=== PATIENT | female | born 1940 | race Caucasian/White ===

== ENCOUNTER → 2017-04-19 | Outpatient (CLI) | payer OTHER ==
[~2017-04-19] MED LIST: ADVIN10/60 INH; AMLO-110 PO; ASPI81TA28 PO; MULT-506 PO; OPTIRAY 320 IV PRN; SERT-234 PO; SIMV20TA5 PO; VNTHFA/IN INH
--- NOTE | 2017-04-19 14:01 | DIAGNOSTIC IMAGING REPORT ---
CT SCAN OF THE ABDOMEN AND PELVIS WITH IV CONTRAST CLINICAL HISTORY: Generalized abdominal pain. Reported history of colonic ulcer. COMPARISON STUDY: No priors. TECHNIQUE: Following the IV administration of 92 cc of Optiray 320, CT scan of the abdomen and pelvis is performed from the lung bases to the proximal femora. Images are reviewed in the axial, sagittal, and coronal planes. IV contrast was administered without complication. Automated dose control exposure was utilized. A dose lowering technique was utilized adhering to the principles of ALARA. The examination is degraded by a paucity of intraperitoneal fat. CT DOSE: 221.84 mGycm FINDINGS: Lung bases: The heart is mildly enlarged and without pericardial effusion. Advanced emphysema is identified. Subpleural reticulation is seen at the lung bases. No airspace consolidation or pleural effusion is identified. Liver: The contrast-enhanced liver is normal in size, contour, and attenuation. There is mild central intrahepatic biliary ductal dilatation. The hepatic veins and portal veins are patent. A 9 mm cyst is noted in the right lobe. Gallbladder: Surgically absent. Spleen: Normal in size and attenuation. Pancreas: Moderately atrophic and grossly unremarkable. Adrenal glands: Unremarkable. Kidneys: The contrast enhanced kidneys demonstrate cortical atrophy. There is mild to moderate right-sided hydronephrosis. The right ureter is normal in caliber. No hydronephrosis is seen on the left. The kidneys enhance symmetrically. The left renal vein appears dilated, and focally narrows posterior to the superior mesenteric artery. There are associated retroperitoneal collateral vessels. Abdominal vasculature: The abdominal aorta is normal in course and caliber noting advanced atherosclerotic calcification. Bowel: There are postoperative changes from sigmoid colon resection with colocolonic anastomosis. No bowel obstruction is seen. Moderate to severe constipation is observed. The appendix is not visualized. Peritoneum: There is no intraperitoneal free air or abdominal ascites. Lymphadenopathy: None. Pelvic viscera: The bladder is normal as visualized. The uterus is surgically absent. No adnexal lesion is seen. Skeletal structures: The skeletal structures are osteopenic. There is mild to moderate lumbosacral spondylosis. Grade 1 anterolisthesis is seen at L4-L5. No lytic or blastic lesions are seen. IMPRESSION: 1. There are postoperative changes from sigmoid colon resection with colocolonic anastomosis. No bowel obstruction is seen. 2. Moderate to severe constipation. 3. Cardiomegaly and advanced emphysema. 4. There is mild to moderate right hydronephrosis. The right ureter is normal in caliber and the right kidney enhances homogeneously. 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 Correlation with clinical findings and any prior outside imaging studies will be required. 5. 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 There are collateral vessels in the left retroperitoneal space. This suggests Nutcracker syndrome. Clinical correlation will be required. 6. Additional findings as above. Electronically signed by: Shukri Richey M.D. 04/19/2017 2:00 PM Dictated Date/Time: 04/19/2017 1:50 PM
== END | disposition home or self-care (01) ==
LOC: C.CTS 13:20
PROVIDERS: ATTEND Internal Medicine
DX: K63.3 Ulcer of intestine (principal); R10.813 Right lower quadrant abdominal tenderness

== ENCOUNTER → 2017-04-29 | Day surgery (SDC) | payer OTHER ==
[2017-04-23 09:12] VITALS: BMI 18.0
[~2017-04-29] VITALS: Ht 162.6 cm; Wt 50.0 kg
[~2017-04-29] MED LIST changes: +LIDOCAINE HCL 2% 2 ML VIAL (20MG/ML) ONE; -OPTIRAY 320 IV PRN; +PROPOFOL IV EMULSION 10 MG/ML 20 ML VIAL IV ONE; +SODIUM CHLORIDE 0.9% 500ML 500 ML IV ONE
[2017-04-29 13:27] VITALS: Ht 162.6 cm; Wt 50.0 kg
--- NOTE | 2017-04-29 14:18 | Endo History and Physical ---
History & Physical Date of Service: Apr 29, 2017. Chief Complaint: abd tenderness, Hx ulcer of colon Referring Physician: Dr. Hamilton History of Present Illness 77 yo CF who presents for colonoscopy secondary to abdominal tenderness and history of colon ulcer. Past Surgical History Hx Cardiac Surgery: No Hx Internal Defibrillator: No Hx Pacemaker: No Hx Abdominal Surgery: Yes (HERNIA REPAIRS WITH MESH, MARY, PARTIAL HYSTER) Hx of Implantable Prosthesis: No Hx Post-Op Nausea and Vomiting: No Hx Cancer Surgery: Yes (BILATERAL MASTECTOMY) Hx Thoracic Surgery: No Hx Orthopedic: No Hx Urinary Tract Surgery: No Family History None Social History Smoking Status: Current Every Day Smoker Hx Substance Use: No Hx Alcohol Use: No Allergies Coded Allergies: No Known Allergies (Verified , 04/29/17) Current Medications Reported Home Medications Medications Dose Route/Sig Max Daily Dose Days Date Category Ventolin Hfa (Albuterol) 200 Puffs/07557 Mcg Aers 2-4 Puffs INH Q6H PRN 04/23/17 Reported Advair Diskus 100/50 60 Dose (Fluticasone Prop/Salmeterol) 1 Ea Aerp 1 Puff INH BID PRN 04/23/17 Reported Aspirin Ec (Aspirin) 81 Mg Tab 81 Mg PO QAM 04/23/17 Reported Multivitamin (Multivitamins) Tab 1 Tab PO QAM 04/23/17 Reported Norvasc (Amlodipine Besylate) 5 Mg Tab 5 Mg PO QAM 04/23/17 Reported Zoloft (Sertraline HCl) 100 Mg Tab 100 Mg PO QPM 04/23/17 Reported Zocor (Simvastatin) 20 Mg Tab 20 Mg PO QPM 04/23/17 Reported Vital Signs Weight (Kilograms): 50.00 Height (Feet): 5 Height (Inches): 4 Date Time Temp Pulse Resp B/P (MAP) Pulse Ox O2 Delivery O2 Flow Rate FiO2 04/29/17 13:32 36.4 91 20 129/61 (83) 96 Room Air Physical Exam General Appearance: WD/WN, no apparent distress Respiratory/Chest: Auscultation: breath sounds normal Cardiovascular: Heart Auscultation: RRR Abdomen: Bowel Sounds: normal Inspection & Palpation: soft, non-distended, no tenderness, guarding & rebound Assessment and Plan Assessment: 77 yo CF who presents for colonoscopy secondary to abdominal tenderness and history of colon ulcer. Plan: Proceed with colonoscopy.
--- NOTE | 2017-04-29 15:04 | Discharge Instructions ---
Endoscopy Patient Instructions Date / Procedure(s) Performed Apr 29, 2017. Colonoscopy Allergy Information Coded Allergies: No Known Allergies (Verified , 04/29/17) Discharge Date / Findings Apr 29, 2017. Colon/Rectal polyps Terminal ileitis s/p biopsies Sigmoid colon anastomosis Internal hemorrhoids Medication Instructions OK to resume all medications today as prescribed Reported Home Medications Medications Dose Route/Sig Max Daily Dose Days Date Category Ventolin Hfa (Albuterol) 200 Puffs/75606 Mcg Aers 2-4 Puffs INH Q6H PRN 04/23/17 Reported Advair Diskus 100/50 60 Dose (Fluticasone Prop/Salmeterol) 1 Ea Aerp 1 Puff INH BID PRN 04/23/17 Reported Aspirin Ec (Aspirin) 81 Mg Tab 81 Mg PO QAM 04/23/17 Reported Multivitamin (Multivitamins) Tab 1 Tab PO QAM 04/23/17 Reported Norvasc (Amlodipine Besylate) 5 Mg Tab 5 Mg PO QAM 04/23/17 Reported Zoloft (Sertraline HCl) 100 Mg Tab 100 Mg PO QPM 04/23/17 Reported Zocor (Simvastatin) 20 Mg Tab 20 Mg PO QPM 04/23/17 Reported Provider Instructions Activity Restrictions - No exercising or heavy lifting for 24 hours. - Do not drink alcohol the day of the procedure. - Do not drive a car or operate machinery until the day after the procedure. - Do not make any important decisions or sign important papers in 24 hours after the procedure. Following Day: - Return to full activity which may include returning to work/school. Diet Start your diet with liquids and light foods (jello, soup, juice, toast). Then eat your usual diet if not nauseated. Treatment For Common After Affects For mild abdominal pain, bloating, or excessive gas: - Rest - Eat lightly - Lie on right side Follow-Up Information Follow-up with Dr. Hamilton as scheduled Anesthesia Information What You Should Know You have had a procedure that required some medicine to reduce anxiety and discomfort. This treatment is called moderate sedation. After receiving the treatment, you may be sleepy, but you will be able to breathe on your own. The effects of the treatment may last for several hours. Follow these instructions along with Activity/Diet recommendations noted above: * Do NOT do anything where dizziness or clumsiness would be dangerous. * Rest quietly at home today, then you can be up and about tomorrow. * Have a responsible person stay with you the rest of today. * You may have had an I.V. today. If so, you may take the dressing off later today. Recommendations Call your doctor if: * Trouble breathing * Continuous vomiting for more than 24 hours * Temperature above 101 degrees * Severe abdominal pain or bloating * Pain not relieved by pain medicine ordered * There is increased drainage or redness from any incision * A large amount of rectal bleeding greater than 2-3 tablespoons. (If you had a polyp/s removed or have hemorrhoids, a small amount of blood - from the rectum is to be expected.) * You have any unanswered questions or concerns. IN THE EVENT OF A SERIOUS EMERGENCY, GO TO THE NEAREST EMERGENCY ROOM Your discharge instructions were prepared by provider Cyril Reinoso. Patient Instructions Signature Page Sangeeta Lawson Patient (or Guardian) Signature/Date: I have read and understand the instructions given to me by my caregivers. Caregiver/RN/Doctor Signature/Date: The above-named patient and/or guardian has received patient instructions on this date. + Original Patient Signature Page (only) stays with chart. Please make copy for patient.
--- NOTE | 2017-04-29 15:08 | Anesthesiology Progress Note ---
Anesthesia Post Op Note Date & Time Apr 29, 2017 at 15:08 Vital Signs Pain Intensity: 0 Vital Signs Past 12 Hours Date Time Temp Pulse Resp B/P (MAP) Pulse Ox O2 Delivery O2 Flow Rate FiO2 04/29/17 13:32 36.4 91 20 129/61 (83) 96 Room Air Notes Mental Status: alert / awake / arousable, participated in evaluation Pt Amnestic to Procedure: Yes Nausea / Vomiting: adequately controlled Pain: adequately controlled Airway Patency, RR, SpO2: stable & adequate BP & HR: stable & adequate Hydration State: stable & adequate Anesthetic Complications: no major complications apparent
[2017-04-29 15:36] VITALS: BP 125/70; PULSE 77; O2SAT 96
--- NOTE | 2017-04-29 15:38 | GI REPORT ---
Procedure Date: 04/29/2017 2:12 PM Procedure: Colonoscopy Indications: Generalized abdominal pain Medicines: Monitored Anesthesia Care Complications: No immediate complications. Estimated Blood Loss: Estimated blood loss: none. Procedure: Pre-Anesthesia Assessment: - Prior to the procedure, a History and Physical was performed, and patient medications and allergies were reviewed. The patient's tolerance of previous anesthesia was also reviewed. The risks and benefits of the procedure and the sedation options and risks were discussed with the patient. All questions were answered, and informed consent was obtained. Prior Anticoagulants: The patient has taken aspirin, last dose was 1 day prior to procedure. ASA Grade Assessment: III - A patient with severe systemic disease. After reviewing the risks and benefits, the patient was deemed in satisfactory condition to undergo the procedure. After I obtained informed consent, the scope was passed under direct vision. Throughout the procedure, the patient's blood pressure, pulse, and oxygen saturations were monitored continuously. The Scope was introduced through the anus and advanced to the terminal ileum. The colonoscopy was performed without difficulty. The patient tolerated the procedure well. The quality of the bowel preparation was good. The terminal ileum, ileocecal valve, appendiceal orifice, and rectum were photographed. Findings: Three sessile polyps were found in the recto-sigmoid colon. The polyps were 5 to 7 mm in size. These polyps were removed with a hot snare. Resection and retrieval were complete. Localized inflammation, mild in severity and characterized by erythema was found in the terminal ileum. Biopsies were taken with a cold forceps for histology. There was evidence of a prior end-to-end colo-colonic anastomosis in the sigmoid colon. This was patent and was characterized by healthy appearing mucosa. The anastomosis was traversed. Non-bleeding internal hemorrhoids were found during retroflexion. Impression: - Three 5 to 7 mm polyps at the recto-sigmoid colon, removed with a hot snare. Resected and retrieved. - Ileitis. Biopsied. - Patent end-to-end colo-colonic anastomosis, characterized by healthy appearing mucosa. - Non-bleeding internal hemorrhoids. Recommendation: - Resume previous diet. - Repeat colonoscopy for surveillance based on pathology results. - Continue present medications. - Return to GI office as previously scheduled. Cyril Reinoso DO 04/29/2017 3:38:25 PM This report has been signed electronically. Note Initiated On: 04/29/2017 2:12 PM I attest to the content of the Intraoperative Record and orders documented therein, exceptions below
== END | disposition home or self-care (01) ==
LOC: C.GI 12:56
PROVIDERS: ATTEND Internal Medicine
DX: R10.84 Generalized abdominal pain (principal); R10.819 Abdominal tenderness, unspecified site; D12.5 Benign neoplasm of sigmoid colon; K52.9 Noninfective gastroenteritis and colitis, unspecified; K64.8 Other hemorrhoids; Z87.19 Personal history of other diseases of the digestive system; F17.200 Nicotine dependence, unspecified, uncomplicated; J44.9 Chronic obstructive pulmonary disease, unspecified; I10 Essential (primary) hypertension; E78.5 Hyperlipidemia, unspecified; F41.9 Anxiety disorder, unspecified; F32.9 Major depressive disorder, single episode, unspecified; Z90.49 Acquired absence of other specified parts of digestive tract; Z90.711 Acquired absence of uterus with remaining cervical stump; Z90.13 Acquired absence of bilateral breasts and nipples; Z79.82 Long term (current) use of aspirin; Z85.3 Personal history of malignant neoplasm of breast

== ENCOUNTER → 2017-08-20 | Day surgery (SDC) | payer OTHER ==
[2017-08-06 15:24] VITALS: Ht 163.8 cm; Wt 50.0 kg
[~2017-08-20] VITALS: Ht 163.8 cm; Wt 50.0 kg
[~2017-08-20] MED LIST changes: +ATROPINE SULFATE 0.1 MG/ML 5ML SYR IV PRN; +EpHEDrine SULFATE INJ 50 MG/ML AMP IV PRN
--- NOTE | 2017-08-20 08:18 | Endo History and Physical ---
History & Physical Date of Service: Aug 20, 2017. Chief Complaint: Ulcer in the ileum Referring Physician: Dr. Alberto Hamilton History of Present Illness 77 yo CF who presents for colonoscopy secondary to ulcer in the ileum on last exam. Past Surgical History Hx Cardiac Surgery: No Hx Internal Defibrillator: No Hx Pacemaker: No Hx Abdominal Surgery: Yes (HERNIA REPAIRS WITH MESH, MARY, PARTIAL HYSTER) Hx of Implantable Prosthesis: No Hx Post-Op Nausea and Vomiting: No Hx Cancer Surgery: Yes (BILATERAL MASTECTOMY) Hx Thoracic Surgery: No Hx Orthopedic: No Hx Urinary Tract Surgery: No Family History None Social History Smoking Status: Current Every Day Smoker Hx Substance Use: No Hx Alcohol Use: No Allergies Coded Allergies: No Known Allergies (Verified , 08/06/17) Current Medications Reported Home Medications Medications Dose Route/Sig Max Daily Dose Days Date Category Ventolin Hfa (Albuterol) 200 Puffs/28829 Mcg Aers 2-4 Puffs INH Q6H PRN 04/23/17 Reported Advair Diskus 100/50 60 Dose (Fluticasone Prop/Salmeterol) 1 Ea Aerp 1 Puff INH BID PRN 04/23/17 Reported Aspirin Ec (Aspirin) 81 Mg Tab 81 Mg PO QAM 04/23/17 Reported Multivitamin (Multivitamins) Tab 1 Tab PO QAM 04/23/17 Reported Norvasc (Amlodipine Besylate) 5 Mg Tab 5 Mg PO QAM 04/23/17 Reported Zoloft (Sertraline HCl) 100 Mg Tab 100 Mg PO QPM 04/23/17 Reported Zocor (Simvastatin) 20 Mg Tab 20 Mg PO QPM 04/23/17 Reported Vital Signs Weight (Kilograms): 50 Height (Feet): 5 Height (Inches): 4.5 Date Time Temp Pulse Resp B/P (MAP) Pulse Ox O2 Delivery O2 Flow Rate FiO2 08/20/17 08:14 36.5 84 20 142/67 (92) 95 Room Air Physical Exam General Appearance: WD/WN, no apparent distress Respiratory/Chest: Auscultation: breath sounds normal Cardiovascular: Heart Auscultation: RRR Abdomen: Bowel Sounds: normal Inspection & Palpation: soft, non-distended, no tenderness, guarding & rebound Assessment and Plan Assessment: 77 yo CF who presents for colonoscopy secondary to ulcer in the ileum on last exam. Plan: Proceed with colonoscopy
--- NOTE | 2017-08-20 09:35 | Discharge Instructions ---
Endoscopy Patient Instructions Date / Procedure(s) Performed Aug 20, 2017. Colonoscopy Allergy Information Coded Allergies: No Known Allergies (Verified , 08/06/17) Discharge Date / Findings Aug 20, 2017. Random ileum biopsies Random colon biopsies Internal hemorrhoids Medication Instructions Stopped Medication(s): Last ASA yesterday OK to resume all medications today as prescribed Reported Home Medications Medications Dose Route/Sig Max Daily Dose Days Date Category Ventolin Hfa (Albuterol) 200 Puffs/99826 Mcg Aers 2-4 Puffs INH Q6H PRN 04/23/17 Reported Advair Diskus 100/50 60 Dose (Fluticasone Prop/Salmeterol) 1 Ea Aerp 1 Puff INH BID PRN 04/23/17 Reported Aspirin Ec (Aspirin) 81 Mg Tab 81 Mg PO QAM 04/23/17 Reported Multivitamin (Multivitamins) Tab 1 Tab PO QAM 04/23/17 Reported Norvasc (Amlodipine Besylate) 5 Mg Tab 5 Mg PO QAM 04/23/17 Reported Zoloft (Sertraline HCl) 100 Mg Tab 100 Mg PO QPM 04/23/17 Reported Zocor (Simvastatin) 20 Mg Tab 20 Mg PO QPM 04/23/17 Reported Provider Instructions Activity Restrictions - No exercising or heavy lifting for 24 hours. - Do not drink alcohol the day of the procedure. - Do not drive a car or operate machinery until the day after the procedure. - Do not make any important decisions or sign important papers in 24 hours after the procedure. Following Day: - Return to full activity which may include returning to work/school. Diet Start your diet with liquids and light foods (jello, soup, juice, toast). Then eat your usual diet if not nauseated. Treatment For Common After Affects For mild abdominal pain, bloating, or excessive gas: - Rest - Eat lightly - Lie on right side Follow-Up Information Follow-up with Dr. Alberto Hamilton as scheduled Anesthesia Information What You Should Know You have had a procedure that required some medicine to reduce anxiety and discomfort. This treatment is called moderate sedation. After receiving the treatment, you may be sleepy, but you will be able to breathe on your own. The effects of the treatment may last for several hours. Follow these instructions along with Activity/Diet recommendations noted above: * Do NOT do anything where dizziness or clumsiness would be dangerous. * Rest quietly at home today, then you can be up and about tomorrow. * Have a responsible person stay with you the rest of today. * You may have had an I.V. today. If so, you may take the dressing off later today. Recommendations Call your doctor if: * Trouble breathing * Continuous vomiting for more than 24 hours * Temperature above 101 degrees * Severe abdominal pain or bloating * Pain not relieved by pain medicine ordered * There is increased drainage or redness from any incision * A large amount of rectal bleeding greater than 2-3 tablespoons. (If you had a polyp/s removed or have hemorrhoids, a small amount of blood - from the rectum is to be expected.) * You have any unanswered questions or concerns. IN THE EVENT OF A SERIOUS EMERGENCY, GO TO THE NEAREST EMERGENCY ROOM Your discharge instructions were prepared by provider Cyril Reinoso. Patient Instructions Signature Page Sangeeta Lawson Patient (or Guardian) Signature/Date: I have read and understand the instructions given to me by my caregivers. Caregiver/RN/Doctor Signature/Date: The above-named patient and/or guardian has received patient instructions on this date. + Original Patient Signature Page (only) stays with chart. Please make copy for patient.
--- NOTE | 2017-08-20 09:39 | Anesthesiology Progress Note ---
Anesthesia Post Op Note Date & Time Aug 20, 2017 at 09:39 Vital Signs Pain Intensity: 0 Vital Signs Past 12 Hours Date Time Temp Pulse Resp B/P (MAP) Pulse Ox O2 Delivery O2 Flow Rate FiO2 08/20/17 08:14 36.5 84 20 142/67 (92) 95 Room Air Notes Mental Status: alert / awake / arousable, participated in evaluation Pt Amnestic to Procedure: Yes Nausea / Vomiting: adequately controlled Pain: adequately controlled Airway Patency, RR, SpO2: stable & adequate BP & HR: stable & adequate Hydration State: stable & adequate Anesthetic Complications: no major complications apparent
--- NOTE | 2017-08-20 09:41 | GI REPORT ---
Procedure Date: 08/20/2017 8:51 AM Procedure: Colonoscopy Indications: Ulcers of terminal ileum Medicines: Monitored Anesthesia Care Complications: No immediate complications. Estimated Blood Loss: Estimated blood loss: none. Estimated blood loss: none. Procedure: Pre-Anesthesia Assessment: - Prior to the procedure, a History and Physical was performed, and patient medications and allergies were reviewed. The patient's tolerance of previous anesthesia was also reviewed. The risks and benefits of the procedure and the sedation options and risks were discussed with the patient. All questions were answered, and informed consent was obtained. Prior Anticoagulants: The patient has taken aspirin, last dose was 1 day prior to procedure. ASA Grade Assessment: IV - A patient with severe systemic disease that is a constant threat to life. After reviewing the risks and benefits, the patient was deemed in satisfactory condition to undergo the procedure. After I obtained informed consent, the scope was passed under direct vision. Throughout the procedure, the patient's blood pressure, pulse, and oxygen saturations were monitored continuously. The Scope was introduced through the anus and advanced to the terminal ileum. The colonoscopy was performed without difficulty. The patient tolerated the procedure well. The quality of the bowel preparation was good. The terminal ileum, ileocecal valve, appendiceal orifice, and rectum were photographed. Findings: The perianal and digital rectal examinations were normal. Several random biopsies were obtained with cold forceps for histology in the entire colon. A localized area of mucosa in the terminal ileum was mildly erythematous. Biopsies were taken with a cold forceps for histology. Non-bleeding internal hemorrhoids were found during retroflexion. The hemorrhoids were small. Impression: - Erythematous mucosa in the terminal ileum. Biopsied. - Non-bleeding internal hemorrhoids. - Several random biopsies were obtained in the entire colon. Recommendation: - Resume previous diet. - Continue present medications. - Repeat colonoscopy for surveillance based on pathology results. - Return to primary care physician as previously scheduled. Cyril Reinoso, 08/20/2017 9:41:09 AM This report has been signed electronically. Note Initiated On: 08/20/2017 8:51 AM I attest to the content of the Intraoperative Record and orders documented therein, exceptions below
[2017-08-20 10:10] VITALS: BP 151/69; PULSE 93; O2SAT 96
== END | disposition home or self-care (01) ==
LOC: C.GI 07:44
PROVIDERS: ATTEND Internal Medicine
DX: Z12.11 Encounter for screening for malignant neoplasm of colon (principal); K63.3 Ulcer of intestine; K64.8 Other hemorrhoids; K52.9 Noninfective gastroenteritis and colitis, unspecified; I25.10 Atherosclerotic heart disease of native coronary artery without angina pectoris; F17.200 Nicotine dependence, unspecified, uncomplicated; I10 Essential (primary) hypertension; Z85.3 Personal history of malignant neoplasm of breast; Z79.82 Long term (current) use of aspirin

== ENCOUNTER → 2017-11-04 | Outpatient (CLI) | payer OTHER ==
[~2017-11-04] MED LIST changes: -ATROPINE SULFATE 0.1 MG/ML 5ML SYR IV PRN; -EpHEDrine SULFATE INJ 50 MG/ML AMP IV PRN; -LIDOCAINE HCL 2% 2 ML VIAL (20MG/ML) ONE; +LORA-741 PO; -PROPOFOL IV EMULSION 10 MG/ML 20 ML VIAL IV ONE; -SODIUM CHLORIDE 0.9% 500ML 500 ML IV ONE; +SULF-302 PO
--- NOTE | 2017-11-04 16:22 | DIAGNOSTIC IMAGING REPORT ---
PET/CT SKULL-THIGH CLINICAL HISTORY: 77 years-old Female presenting with BREAST CANCER, indeterminate 10 mm nodule in the right middle lobe and indeterminate 4 mm nodule in the left lower lobe, history of smoking, history of bilateral mastectomy in the 1970s, history of hysterectomy, cholecystectomy. TECHNIQUE: PET/CT was performed from the base of the skull through the proximal thighs following the intravenous administration of 9.331 mCi of F18-FDG. Blood glucose level 82 mg/dL. The injection was performed at 12:32 PM and imaging began at 2:[address] was performed for attenuation correction purposes and anatomic localization. COMPARISON: CT of the abdomen and pelvis from 04/19/[address] from 10/18/2017 performed at an outside hospital. CT DOSE (mGy.cm): The estimated cumulative dose is 1156.30. FINDINGS: Head and neck: No FDG-avid mass in the visualized portion of the head or neck. No FDG avid or enlarged lymph nodes in the neck. Chest: Postsurgical changes of bilateral mastectomy. Extensive FDG avid mediastinal and right hilar lymphadenopathy, which is confluent. This involves the right paratracheal, precarinal, subcarinal, paraesophageal, and periaortic regions (max SUV 12.5). Periaortic nodes are noted along both right and left lateral aspects and posteriorly adjacent to the posterior basal left lower lobe. Atherosclerosis of the aorta. Mild multichamber enlargement of the heart. Coronary artery and aortic valve calcification. Small right pleural effusion. Emphysema. Extensive dependent groundglass opacity in the right lower lobe, which is mildly FDG avid (max SUV 3.03). However, at the superior extent there is a solid FDG avid nodule measuring 2.9 cm (max SUV 9.06. Additional smaller FDG avid nodule in the right lower lobe (series 2 image 111). Multiple FDG avid left solid pulmonary nodules noted in the right middle lobe (max SUV 4.98). Subcentimeter solid pulmonary nodule in the left lower lobe, below the level of PET resolution. Abdomen and pelvis: Extensive FDG avid retroperitoneal lymphadenopathy, which is confluent (max SUV 8.47). Centrally hypodense lymph node immediately inferior to the aortic bifurcation is also FDG avid (max SUV 8.40). Multiple FDG avid parenchymal lesions in the liver (max SUV 3.93). Dilatation of the bilateral renal collecting systems. Postsurgical changes of mesh repair of the ventral abdominal wall. Musculoskeletal: No FDG-avid or destructive osseous lesion. IMPRESSION: 1. Initial PET/CT demonstrates extensive disease burden with mediastinal and right hilar lymphadenopathy as well as extensive retroperitoneal abdominal lymphadenopathy. 2. FDG avid mass in the superior segment of the right lower lobe. This may represent the primary site of malignancy. Alternatively, this appearance may be due to lymphoma with secondary involvement of the lung. This is considered less likely. 3. Peripheral more dependent mildly FDG avid consolidation in the right lower lobe may represent postobstructive pneumonia. 4. Multiple FDG avid right lung nodules consistent with metastatic disease. 5. Left lung nodule below the level of PET resolution. 6. FDG avid liver lesions consistent with hepatic metastases. 7. Emphysema. Electronically signed by: Rodolfo Carver M.D. 11/04/2017 4:21 PM Dictated Date/Time: 11/04/2017 4:02 PM
== END | disposition home or self-care (01) ==
LOC: C.PET 10:58
PROVIDERS: ATTEND Internal Medicine Pulmonary Disease
DX: R91.1 Solitary pulmonary nodule (principal); J43.9 Emphysema, unspecified

== ENCOUNTER → 2017-11-11 | Outpatient (CLI) | payer OTHER ==
--- NOTE | 2017-11-11 17:20 | ECHOCARDIOGRAM REPORT ---
*NOTICE TO RECEIVING DEMOCRAT AGENCY This information is strictly Confidential and protected under [place] law. [place] law prohibits you from making any further disclosure of this information unless further disclosure is expressly permitted by the written consent of the person to whom it pertains or is authorized by law. A general authorization for the release of medical or other information is not sufficient for this purpose. Hospital accepts no responsibility if the information is made available to any other person, INCLUDING THE PATIENT. Interpretation Summary * Name: ANISA FRANCOIS Study Date: 11/11/2017 04:11 PM * Patient Location: [facility] HR: 90 * : 1940 (M/d/yyyy) Gender: Female Height: 64 in * Age: 77 yrs Ethnicity: CA Weight: 110 lb * Performed By: Dari Lewis RDCS * * Reason For Study: COPD, HTN, PULM NODULE * BSA: 1.5 m2 * -- Conclusions -- * 1. Normal LV size. Mild concentric LVH. * 2. Normal LV systolic function. LVEF 60-65%. No regional wall motion abnormalities. * 3. Normal RV size and function. * 4. No significant valvular pathology. * 5. No prior studies for comparison. Procedure Details * A complete two-dimensional transthoracic echocardiogram was performed (2D, M-mode, Doppler and color flow Doppler). Left Ventricle * The left ventricle is grossly normal size. * There is mild concentric left ventricular hypertrophy. * Ejection Fraction = 60-65%. * No regional wall motion abnormalities noted. Right Ventricle * The right ventricle is grossly normal size. * The right ventricular systolic function is normal as assessed by tricuspid annular plane systolic excursion (TAPSE) (normal >1.5 cm). Atria * The left atrial size is normal. * Right atrial size is normal. * No ASD detected; PFO is not assessed. Mitral Valve * The mitral valve is grossly normal. * There is moderate mitral annular calcification. * There is no mitral valve stenosis. * There is trace mitral regurgitation. Tricuspid Valve * The tricuspid valve is not well visualized, but is grossly normal. * There is no tricuspid stenosis. * There is trace tricuspid regurgitation. Aortic Valve * The aortic valve opens well. * The aortic valve is trileaflet. * No hemodynamically significant valvular aortic stenosis. * There is no significant aortic regurgitation. Pulmonic Valve * The pulmonary valve is inadequately visualized, but the Doppler data is adequate for interpretation. * There is no pulmonic valvular stenosis. * There is no pulmonic valvular regurgitation. Great Vessels * The aortic root and proximal ascending aorta are normal sized. Pericardium/Pleural * There is no pericardial effusion. MMode 2D Measurements and Calculations IVSd 1.2 cm IVSs 1.6 cm LVIDd 3.7 cm LVIDs 2.4 cm LVPWd 1.3 cm LVPWs 1.8 cm IVS/LVPW 0.98 FS 33.0 % EDV(Teich) 56.4 ml ESV(Teich) 21.1 ml EF(Teich) 62.5 % EDV(cubed) 48.7 ml ESV(cubed) 14.6 ml EF(cubed) 70.0 % % IVS thick 28.2 % % LVPW thick 44.6 % LV mass(C)d 155.8 grams LV mass(C)dI 102.7 grams/m\S\2 LV mass(C)s 158.1 grams LV mass(C)sI 104.2 grams/m\S\2 SV(Teich) 35.2 ml SI(Teich) 23.2 ml/m\S\2 SV(cubed) 34.1 ml SI(cubed) 22.5 ml/m\S\2 Ao root diam 2.9 cm Ao root area 6.7 cm\S\2 LA dimension 2.7 cm LA/Ao 0.94 LVAd ap4 17.7 cm\S\2 LVLd ap4 6.1 cm EDV(MOD-sp4) 42.3 ml EDV(sp4-el) 43.3 ml LVAs ap4 9.3 cm\S\2 LVLs ap4 5.1 cm ESV(MOD-sp4) 14.4 ml ESV(sp4-el) 14.5 ml EF(MOD-sp4) 66.0 % EF(sp4-el) 66.5 % LVAd ap2 18.5 cm\S\2 LVLd ap2 7.4 cm EDV(MOD-sp2) 37.4 ml EDV(sp2-el) 39.3 ml LVAs ap2 10.1 cm\S\2 LVLs ap2 6.1 cm ESV(MOD-sp2) 15.0 ml ESV(sp2-el) 14.0 ml EF(MOD-sp2) 60.0 % EF(sp2-el) 64.5 % LVLd %diff 16.9 % EDV(MOD-bp) 43.2 ml LVLs %diff 16.8 % ESV(MOD-bp) 16.0 ml EF(MOD-bp) 63.0 % SV(MOD-sp4) 27.9 ml SI(MOD-sp4) 18.4 ml/m\S\2 SV(MOD-sp2) 22.4 ml SI(MOD-sp2) 14.8 ml/m\S\2 SV(MOD-bp) 27.2 ml SI(MOD-bp) 17.9 ml/m\S\2 SV(sp4-el) 28.8 ml SI(sp4-el) 19.0 ml/m\S\2 SV(sp2-el) 25.4 ml SI(sp2-el) 16.7 ml/m\S\2 Doppler Measurements and Calculations MV E max kaden 68.5 cm/sec MV A max kaden 87.4 cm/sec MV E/A 0.78 MV dec time 0.19 sec Ao V2 max 131.0 cm/sec Ao max PG 6.9 mmHg Ao max PG (full) 2.5 mmHg LV V1 max PG 4.4 mmHg LV V1 max 104.6 cm/sec
[2017-11-11 17:43] LABS: BASO % 0.6 %; BASO ABS # 0.05 K/uL (0-0.2); EOS % 2.3 %; EOS ABS # 0.19 K/uL (0-0.5); HEMATOCRIT 40.8 % (37-47); HEMOGLOBIN 13.5 g/dL (12.0-16.0); IG# 0.01 K/uL (0.00-0.02); LYMPH % 15.1 %; LYMPH ABS # 1.25 K/uL (1.2-3.4); MEAN CELL VOLUME 82.1 fL (80-100); MEAN CORPUSCULAR HEMOGLOBIN 27.2 pg (25-34); MEAN CORPUSCULAR HGB CONC 33.1 g/dl (32-36); MEAN PLATELET VOLUME 9.8 fL (7.4-10.4); MONO ABS # 0.75 K/uL (0.11-0.59); NEUT % 72.9 %; NEUT ABS # 6.05 K/uL (1.4-6.5); PLATELET COUNT 266 K/uL (130-400); RED CELL DISTRIBUTION WIDTH CV 13.2 % (11.5-14.5); RED CELL DISTRIBUTION WIDTH SD 39.9 fL (36.4-46.3)
[2017-11-11 18:03] LABS: ALBUMIN 2.9 gm/dl (3.4-5.0); ALT/SGPT 18 U/L (12-78); AST/SGOT 21 U/L (15-37); BLOOD UREA NITROGEN 11 mg/dl (7-18); CALCIUM 8.9 mg/dl (8.5-10.1); CARBON DIOXIDE 29 mmol/L (21-32); CREATININE 0.46 mg/dl (0.60-1.20); GLUCOSE 86 mg/dl (70-99); POTASSIUM 3.9 mmol/L (3.5-5.1); SODIUM 135 mmol/L (136-145)
[2017-11-11 18:05] LABS: ALKALINE PHOSPHATASE 91 U/L (45-117); TOTAL PROTEIN 6.8 gm/dl (6.4-8.2)
== END | disposition home or self-care (01) ==
LOC: C.CPL 16:04
PROVIDERS: ATTEND Internal Medicine Pulmonary Disease
DX: J44.9 Chronic obstructive pulmonary disease, unspecified (principal)

== ENCOUNTER 2017-11-13 07:49 | Day surgery (SDC) | payer OTHER ==
[2017-11-12 10:15] VITALS: BMI 18.0
--- NOTE | 2017-11-12 19:15 | History and Physical ---
History & Physical Date of Service Nov 12, 2017. History & Physical 77-year-old male presenting here for bronchoscopic/EBUS evaluation for multiple pulmonary nodules and diffuse mediastinal hilar adenopathy. 77[place] [facility] [place] was referred to me by her provider Dr. Alberto Enamorado. Patient was accompanied by 1 of her 3 daughters. Patient is a smoker and has started in early 20s of up to a pack of cigarettes a day and continues to smoke at time of this visit. She is with 3 grown daughters 1 who lives in [facility] and 1 in [place]. She has become extremely dyspneic even with modest exertion walking up stairs or a grade or carrying heavy objects. She complains also of chest tightness with her shortness of breath and has a chronic cough though she states the cough isn' t as bad as it had been within the past several months. She has lost approximately 10 pounds in weight over the past year and her appetite is poor. She denies symptoms of dysphagia or recent fevers chills or sweats. She denies hemoptysis. She has been using her Ventolin inhaler 2 puffs every 4 hours as needed and is on a maintenance inhaler in the form of Advair Diskus. She received her Pneumovax in 2010 and did receive a flu vaccine this year. Chest x- ray reportedly from 02/20/2017 showed changes consistent of COPD with no acute infiltrates or obvious adenopathy. Because of her persistent symptomatology a follow-up chest x-ray on 10/15/2017 was obtained and showed patchy consolidation in the perihilar region on the right with hyperexpansion of the lungs. CT scan of the chest was abnormal. The demonstrated increased soft tissue adenopathy in the right hilum and mediastinum concerning for mass or bulky lymphadenopathy. Post-obstructive density in the right lower lobe was suggested along with indeterminate nodular right middle lobe and left lower lobe lesions. The adenopathy was most pronounced in the sub-carinal region and right hilar region. There is a suggestion of pulmonary arterial hypertension. Multiple bullae and blebs are seen and an increased parenchymal density seen at the apices. Patient has been diagnosed with COPD and major depressive disorder along with generalized anxiety. She said history of malignant neoplasm of the breast has undergone bilateral mastectomies in the 70s without chemotherapy or radiation taken. She also is being treated for dyslipidemia. No obvious history for cardiac disease or angina and no recent stress testing performed. Active Problems 1. Abdominal pain 2. Abdominal tenderness, RLQ (right lower quadrant) 3. Anxiety 4. COPD (chronic obstructive pulmonary disease) 5. Crohn disease 6. Depression 7. Hyperlipidemia 8. Hypertension (I10) 9. Ileitis 10. Internal hemorrhoids 11. Tobacco use (greater than 50 pack year history-current smoker) 12. Tubular adenoma of colon (D12.6) 13. Ulcer, colon 14. breast cancer PsHx: 1. Bilateral mastectomies Family History 1. Denied: Family history of colon cancer 2. Denied: Family history of Crohn's disease 3. Denied: Family history of inflammatory bowel disease 4. Denied: Family history of colon cancer 5. Denied: Family history of Crohn's disease 6. Denied: Family history of inflammatory bowel disease Social History Current smoker (F17.200) Tobacco use (Z72.0) Current Meds 1. Advair Diskus 100-50 MCG/DOSE Inhalation Aerosol Powder Breath Activated; 2. AmLODIPine Besylate 5 MG Oral Tablet; 3. Aspirin 81 MG TABS 4. Multivitamins TABS; 5. Sertraline HCl - 100 MG Oral Tablet; 6. Simvastatin 20 MG Oral Tablet; 7. Ventolin 90 MCG/ACT AERS Allergies 1. No Known Drug Allergies Immunizations Influenza --- Series1: Hold For Documentation, 20-Jun-2017 Vital Signs Height: 5 ft 4.5 in Weight: 109 lb 4 oz BMI Calculated: 18.46 BSA Calculated: 1.52 Temperature: 98 F, Oral Respiration: 16 O2 Saturation: 89 Heart Rate: 87 Blood Pressure: 120 / 64, RUE, Sitting Physical Exam Constitutional General appearance: No acute distress, well appearing and well nourished. Eyes Conjunctiva and lids: No swelling, erythema or discharge. Pupils and irises: Equal, round and reactive to light. Ears, Nose, Mouth, and Throat External inspection of ears and nose: Normal. Otoscopic examination: Tympanic membranes translucent with normal light reflex. Canals patent without erythema. Oropharynx: Normal with no erythema, edema, exudate or lesions. Pulmonary Respiratory effort: No increased work of breathing or signs of respiratory distress. Auscultation of lungs: Abnormal. Distant to P and a with scattered rhonchi right base. Cardiovascular Palpation of heart: Normal PMI, no thrills. Auscultation of heart: Normal rate and rhythm, normal S1 and S2, without murmurs. Examination of extremities for edema and/or varicosities: Normal. Abdomen Abdomen: Non-tender, no masses. Liver and spleen: No hepatomegaly or splenomegaly. Lymphatic Palpation of lymph nodes in neck: No lymphadenopathy. Musculoskeletal Gait and station: Normal. Digits and nails: Normal without clubbing or cyanosis. Inspection/palpation of joints, bones, and muscles: Normal. Skin Skin and subcutaneous tissue: Normal without rashes or lesions. Neurologic Cranial nerves: Cranial nerves 2-12 intact. Reflexes: 2+ and symmetric. Sensation: No sensory loss. Psychiatric Orientation to person, place, and time: Normal. Mood and affect: Normal.
[~2017-11-13] VITALS: Ht 162.6 cm; Wt 49.5 kg
[~2017-11-13 07:49] MED LIST changes: +LACTATED RINGER'S 1000ML 1,000 ML IV SCH
[2017-11-13 08:25] VITALS: BP 131/77; PULSE 93; TEMP 36.5; O2SAT 93; Ht 162.6 cm; Wt 49.5 kg
[2017-11-13] MEDS ORDERED: FENTANYL CITRATE INJ 50 MCG/1 ML 2 ML VIAL ONE (08:26)
[2017-11-13] MEDS ORDERED: MIDAZOLAM HCL 1 MG/ML 2ML VIAL ONE (08:26)
[2017-11-13] MEDS ORDERED: DEXAMETHASONE SOD INJ 4 MG/ML VIAL ONE (08:26)
[2017-11-13] MEDS ORDERED: ONDANSETRON INJ 2 MG/ML 2 ML VIAL ONE (08:26)
[2017-11-13] MEDS ORDERED: PROPOFOL IV EMULSION 10 MG/ML 20 ML VIAL IV ONE (08:26)
[2017-11-13] MEDS ORDERED: LIDOCAINE HCL 2% 2 ML VIAL (20MG/ML) ONE (08:26)
[2017-11-13 08:57] LABS: INR 1.1 (0.9-1.1); PTT PATIENT 26.6 SECONDS (21.0-31.0)
[2017-11-13] MEDS ORDERED: ONDANSETRON INJ 2 MG/ML 2 ML VIAL IV PRN (09:30)
[2017-11-13] MEDS ORDERED: ATROPINE SULFATE 0.1 MG/ML 5ML SYR IV PRN (09:30)
[2017-11-13] MEDS ORDERED: ALBUT/IPRATROP 3MG/0.5MG NEB 3 ML VIAL INH PRN (09:30)
[2017-11-13] MEDS ORDERED: FENTANYL CITRATE INJ 50 MCG/1 ML 2 ML VIAL IV PRN (09:30)
[2017-11-13] MEDS ORDERED: EpHEDrine SULFATE INJ 50 MG/ML AMP IV PRN (09:30)
[2017-11-13 09:34] VITALS: PULSE 99; O2SAT 90
--- NOTE | 2017-11-13 09:39 | History & Physical Bridge Note ---
H&P Re-Evaluation Bridge Note: I have examined the patient, reviewed the History & Physical and in the interval since the performance of the History & Physical I have noted the following changes of clinical significance: No changes noted
[2017-11-13] MEDS ORDERED: EpHEDrine SULFATE 50MG/5ML SYR ONE (10:32)
--- NOTE | 2017-11-13 10:48 | Bronchoscopy Procedure Note ---
Bronchoscopy Procedure Note Procedure: Flexible-Bronchoscopy, EBUS, FNA, BAL Consent: Obtained through the patient placed into the chart Pre-Procedural Dx: mediastinal and hilar adenopathy Post-Procedural Dx: adenocarcinoma of the lung Analgesia: GETA Sedation: GETA Procedure: The Olympus video bronchoscope and EBUS scope were used for this procedure Initially the flexible bronchoscope was used for evaluation of the airways. An LMA Size 4 was used for this procedure and properly positioned Vocal Cords: Anatomically WNL Sub-Glottis & Trachea: Anatomically WNL Cris: Anatomically within normal limits Right bronchial tree: Right mainstem bronchus: There were mucosal changes approximately 3 cm below the takeoff of the cris on the medial aspect Right upper lobe: Anatomically within normal limits Bronchus intermedius: Diffuse mucosal changes appreciated throughout the bronchus intermedius notable changes seen by narrowband imaging Right middle lobe: Mucosal changes noted throughout the right lower lobe, notable changes seen by narrowband imaging Right lower lobe: Anatomically within normal limits Findings: No significant findings noted Left bronchial tree: Left mainstem bronchus: Anatomically within normal limits Left upper lobe: Anatomically within normal limits Lingula: Anatomically within normal limits Left lower lobe: Anatomically within normal limits, mucous plugs obstructing the takeoff to the left lower lobe Findings: No significant findings noted EBUS/PILAR: FNA Christo Stations: 7: # of passes 6 4R: # of passes 3 4L: # of passes 3 BAL: Left lower lobe EBL: 2 cc Complications: None Follow-up: PACU
--- NOTE | 2017-11-13 10:52 | Discharge Instructions ---
Discharge Instructions Date of Service Nov 13, 2017. Admission Reason for Admission: Pulmonary Nodule, Hilar Lymphadenopathy Discharge Discharge Diagnosis / Problem: Possible adenocarcinoma of the lung pending final pathology results Discharge Goals Goal(s): Diagnostic testing Activity Recommendations Activity Limitations: resume your previous activity . Current Hospital Diet Patient's current hospital diet: Discharge Diet Recommended Diet: Regular Diet Procedures Procedures Performed: Flexible bronchoscopy, endobronchial ultrasound, trans-tracheal/bronchial needle aspiration, bronchial lavage Pending Studies Studies pending at discharge: no Medical Emergencies . Who to Call and When: Medical Emergencies: If at any time you feel your situation is an emergency, please call 911 immediately. . Non-Emergent Contact Non-Emergency issues call your: Concierge Manager . . "Provider Documentation" section prepared by Domingo Tan. . VTE Core Measure Inpt VTE Proph given/why not?: Treatment not indicated
--- NOTE | 2017-11-13 11:25 | Anesthesiology Progress Note ---
Anesthesia Post Op Note Date & Time Nov 13, 2017 at 11:25 Vital Signs Pain Intensity: 0 Vital Signs Past 12 Hours Date Time Temp Pulse Resp B/P (MAP) Pulse Ox O2 Delivery O2 Flow Rate FiO2 11/13/17 11:20 36.4 100 16 104/57 94 Nasal Cannula 3 11/13/17 11:10 93 16 96/51 97 Oxymask 5 11/13/17 11:00 90 16 98/56 99 Oxymask 10 11/13/17 10:53 36.3 92 16 116/61 99 Oxymask 10 11/13/17 09:34 99 15 90 Room Air 11/13/17 08:25 36.5 93 22 131/77 (95) 93 Room Air Notes Mental Status: alert / awake / arousable, participated in evaluation Pt Amnestic to Procedure: Yes Nausea / Vomiting: adequately controlled Pain: adequately controlled Airway Patency, RR, SpO2: stable & adequate BP & HR: stable & adequate Hydration State: stable & adequate Anesthetic Complications: no major complications apparent
[2017-11-13 11:36] VITALS: BP 127/65; PULSE 99; TEMP 36.8; O2SAT 92
[2017-11-13 12:05] VITALS: BP 133/66; PULSE 93; TEMP 36.7; O2SAT 94
[2017-11-13 12:35] VITALS: BP 133/62; PULSE 92; TEMP 36.8; O2SAT 94
== END 2017-11-13 13:45 | disposition home or self-care (01) ==
LOC: C.ACU 07:49
PROVIDERS: ATTEND Internal Medicine Critical Care Medicine
DX: C77.1 Secondary and unspecified malignant neoplasm of intrathoracic lymph nodes (principal); K50.90 Crohn's disease, unspecified, without complications; R59.0 Localized enlarged lymph nodes; F41.9 Anxiety disorder, unspecified; J44.9 Chronic obstructive pulmonary disease, unspecified; F32.9 Major depressive disorder, single episode, unspecified; E78.5 Hyperlipidemia, unspecified; I10 Essential (primary) hypertension; R91.1 Solitary pulmonary nodule; F17.210 Nicotine dependence, cigarettes, uncomplicated; Z85.3 Personal history of malignant neoplasm of breast; Z79.899 Other long term (current) drug therapy; Z79.82 Long term (current) use of aspirin

== ENCOUNTER 2017-11-21 14:00 | Emergency (ER) | payer OTHER ==
[~2017-11-21] VITALS: Ht 162.6 cm; Wt 46.0 kg
[~2017-11-21 14:00] MED LIST changes: -AMLO-110 PO; -ASPI81TA28 PO; -LACTATED RINGER'S 1000ML 1,000 ML IV SCH; -MULT-506 PO; -SERT-234 PO; -SIMV20TA5 PO; -SULF-302 PO
[2017-11-21 14:01] VITALS: TEMP 36.5; Ht 162.6 cm; Wt 46.0 kg
--- NOTE | 2017-11-21 14:51 | EMERGENCY ROOM VISIT NOTE ---
History First contact with patient: 14:23 Chief Complaint: SHORTNESS OF BREATH Stated Complaint: TROUBLE BREATHING Nursing Triage Summary: pt to the ED with c/o SOB since this am no c/o pain pt sees dr lopez no LE edema History of Present Illness The patient is a 77 year old female who presents to the Emergency Room with complaints of worsening shortness of breath this morning. She has a history of COPD without any recent hospitalizations for exacerbations. She has a 50 pack year of smoking. Currently smokes 3-4 cigarettes a day. She does have a cough that is chronic. Denies chest pain. The daughter/grand daughter report that she is currently being evaluated for lung mass with extensive mets noted on CT. The shortness of breath has been getting progressively worse. She does not use Oxygen at home. 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 The patient says "she does not have cancer." She does not use her advair or albuterol. She denies any calf tenderness. Denies fevers, chills, nausea, vomiting Denies melena, hematochezia 10 lb weight loss over the last year. She does have a history of breast mass s/p bilateral mastectomies Review of Systems See above for pertinent positives & negatives. A total of 10 systems reviewed and were otherwise negative. Social History Smoking Status: Current Every Day Smoker Alcohol Use: occasionally Drug Use: none Marital Status: Housing Status: lives with family Occupation Status: employed Current/Historical Medications Scheduled Doxycycline Monohydrate (Monodox), 100 MG PO BID Prednisone Tab (Prednisone), 10 MG PO UD Scheduled PRN Albuterol Hfa (Ventolin Hfa), 2-4 PUFFS INH Q6H PRN for SOB/Wheezing Fluticasone Prop/Salmeterol (Advair Diskus 100/50 60 Dose), 1 PUFF INH BID PRN for Shortness of Breath Lorazepam (Ativan), 0.5 MG PO Q6H PRN for PRN Physical Exam Vital Signs Date Time Temp Pulse Resp B/P (MAP) Pulse Ox O2 Delivery O2 Flow Rate FiO2 11/21/17 17:47 91 18 111/62 92 11/21/17 15:47 91 18 111/62 100 Nebulizer 9.0 11/21/17 14:01 36.5 110 24 131/79 95 Room Air Physical Exam GENERAL: Patient is awake alert in no acute distress patient is resting comfortably. No signs of respiratory distress. Cachectic EYES: The conjunctivae are clear. The pupils are round and reactive. EARS, NOSE, MOUTH AND THROAT: The nose is without any evidence of any deformity. Mucous membranes are moist tongue is midline NECK: The neck is nontender and supple. RESPIRATORY: Lung sounds are very distant R>L, right lung has some ronchi/ wheezing CARDIOVASCULAR: Regular rate and rhythm noted there no murmurs rubs or gallops normal S1 normal S2 GASTROINTESTINAL: The abdomen is soft. Bowel sounds are present in all quadrants. Abdomen is nontender PELVIS: The Pelvis is stable. No tenderness to palpation is noted. MUSCULOSKELETAL/EXTREMITIES: There is left calf tenderness to palpation. SKIN: There is no obvious evidence of any rash. There are no petechiae, pallor or cyanosis noted. NEUROLOGIC: Patient is awake alert and oriented x3 strength Medical Decision & Procedures Laboratory Results 11/21/17 15:26 Red Blood Count 5.02, Mean Corpuscular Volume 80.9, Mean Corpuscular Hemoglobin 27.1, Mean Corpuscular Hemoglobin Concent 33.5, Mean Platelet Volume 9.3, Neutrophils (%) (Auto) 80.8, Lymphocytes (%) (Auto) 8.9, Monocytes (%) (Auto) 8.3, Eosinophils (%) (Auto) 1.3, Basophils (%) (Auto) 0.5, Neutrophils # (Auto) 6.58, Lymphocytes # (Auto) 0.73, Monocytes # (Auto) 0.68, Eosinophils # (Auto) 0.11, Basophils # (Auto) 0.04 11/21/17 15:26 Test 11/21/17 15:26 11/21/17 15:34 White Blood Count 8.16 K/uL (4.8-10.8) Red Blood Count 5.02 M/uL (4.2-5.4) Hemoglobin 13.6 g/dL (12.0-16.0) Hematocrit 40.6 % (37-47) Mean Corpuscular Volume 80.9 fL (80-100) Mean Corpuscular Hemoglobin 27.1 pg (25-34) Mean Corpuscular Hemoglobin Concent 33.5 g/dl (32-36) Platelet Count 312 K/uL (130-400) Mean Platelet Volume 9.3 fL (7.4-10.4) Neutrophils (%) (Auto) 80.8 % Lymphocytes (%) (Auto) 8.9 % Monocytes (%) (Auto) 8.3 % Eosinophils (%) (Auto) 1.3 % Basophils (%) (Auto) 0.5 % Neutrophils # (Auto) 6.58 K/uL (1.4-6.5) Lymphocytes # (Auto) 0.73 K/uL (1.2-3.4) Monocytes # (Auto) 0.68 K/uL (0.11-0.59) Eosinophils # (Auto) 0.11 K/uL (0-0.5) Basophils # (Auto) 0.04 K/uL (0-0.2) RDW Standard Deviation 39.9 fL (36.4-46.3) RDW Coefficient of Variation 13.3 % (11.5-14.5) Immature Granulocyte % (Auto) 0.2 % Immature Granulocyte # (Auto) 0.02 K/uL (0.00-0.02) Anion Gap 4.0 mmol/L (3-11) Est Creatinine Clear Calc Drug Dose 61.2 ml/min Estimated GFR () 104.1 Estimated GFR (Non- 89.8 BUN/Creatinine Ratio 19.2 (10-20) Calcium Level 8.8 mg/dl (8.5-10.1) Total Bilirubin 0.4 mg/dl (0.2-1) Aspartate Amino Transf (AST/SGOT) 25 U/L (15-37) Alanine Aminotransferase (ALT/SGPT) 41 U/L (12-78) Alkaline Phosphatase 142 U/L (45-117) Troponin I < 0.015 ng/ml (0-0.045) Total Protein 6.5 gm/dl (6.4-8.2) Albumin 2.5 gm/dl (3.4-5.0) Globulin 4.0 gm/dl (2.5-4.0) Albumin/Globulin Ratio 0.6 (0.9-2) Influenza Type A (RT-PCR) Neg for Influ A (NEG) Influenza Type B (RT-PCR) Neg for Influ B (NEG) Medications Administered Medications (Trade) Dose Ordered Sig/Cecilia Route Start Time Stop Time Status Last Admin Dose Admin Albuterol/ Ipratropium (Duoneb) 3 ml NOW INH 11/21/17 15:00 11/21/17 17:57 DC 11/21/17 15:37 3 ML Methylprednisolone Sodium Succinate 60 mg/Syringe 0.96 ml @ 1.5 mls/min NOW IV 11/21/17 15:00 11/21/17 17:57 DC 11/21/17 15:50 1.5 MLS/MIN Doxycycline Hyclate (Vibramycin Cap) 100 mg ONE ONCE PO 11/21/17 17:30 11/21/17 17:31 DC 11/21/17 17:39 100 MG ED Course 1430 Patient was evaluated in C6. A complete history and physical was performed. 1450 Blood work and imaging ordered 1540 Duoneb treatment given as well as 60 mg IV solumedrol 1730 Results discussed. discharge plans addressed 1745 Doxycycline 100 mg PO given Medical Decision This is a 77 y/o F who presents with progressively worsening shortness of breath secondary to mild copd exacerbation and pneumonia. She has a history of COPD and currently being evaluated outpatient metastatic lung cancer. CBC does not reveal any anemia or leucocytosis. CMP was normal. Troponin was Negative. EKG was normal. Influenza testing was negative. Chest X-ray does reveal known right hilar mass along with post obstructive pneumonia. She did also have a LE USG due to left calf tenderness but that did not reveal a DVT. She was given a dose of IV Solu-Medrol and Duoneb treatment. She was also started on doxycycline. The patient was given clear instructions on use of albuterol, steroid taper and antibiotic. She was advised to take advair daily. She will follow up with her PCP and Screening Technician Impression Primary Impression: Pneumonia Additional Impression: COPD exacerbation Departure Information Prescriptions Prednisone Tab (PREDNISONE) 10 Mg Tab 10 MG PO UD for 10 Days, #30 TAB 50 mg x 2 days, 40 mg x 2 days, 30 mg x 2 days 20 mg x 2 days, 10 mg x 2 days Prov: Anamaria Bourne MD 11/21/17 Doxycycline Monohydrate (Monodox) 100 Mg Cap 100 MG PO BID for 10 Days, #20 CAP Prov: Anamaria Bourne MD 11/21/17 Referrals Alberto Hamilton D.O. (PCP) Patient Instructions My [facility] Problem Qualifiers
[2017-11-21] MEDS ORDERED: METHYLPREDNISOLONE IV 60 MG in SYRINGE 0 ML IV SCH (15:00)
[2017-11-21] MEDS ORDERED: ALBUT/IPRATROP 3MG/0.5MG NEB 3 ML VIAL INH SCH (15:00)
--- NOTE | 2017-11-21 15:38 | EMERGENCY ROOM VISIT NOTE ---
History Report prepared by Jaymie: Festus Mendiola Under the Supervision of: Dr. Shukri Perdomo M.D. First contact with patient: 14:22 Chief Complaint: SHORTNESS OF BREATH Stated Complaint: TROUBLE BREATHING Nursing Triage Summary: pt to the ED with c/o SOB since this am no c/o pain pt sees dr lopez no LE edema History of Present Illness The patient is a 77 year old female who presents to the Emergency Room with complaints of worsening shortness of breath beginning this morning. The patient notes that she has a history of COPD and is currently being evaluated for lung cancer. Because of all of this she has some baseline SOB, but notes that it has gotten noticeably worse this morning. Along with the SOB this morning the patient has been coughing persistently for the past couple of days. This cough is non-productive. The patient has had contact with family recently diagnosed with bronchitis, but she has not been exposed to anyone with influenza. She denies any fevers. She also denies any chest pain or wheezing. She uses inhalers at home and had a Bronchoscopy last week. Source of History: patient Onset: This morning Position: other (Respiratory) Quality: other (SOB) Timing: worsening Associated Symptoms: + cough, No fevers, No chest pain Review of Systems See HPI for pertinent positives & negatives. A total of 10 systems reviewed and were otherwise negative. Past Medical & Surgical Hx of COPD Family History Omitted secondary to age Social History Smoking Status: Current Every Day Smoker Alcohol Use: occasionally Drug Use: none Marital Status: Housing Status: lives with family Occupation Status: employed Current/Historical Medications Scheduled Doxycycline Monohydrate (Monodox), 100 MG PO BID Prednisone Tab (Prednisone), 10 MG PO UD Scheduled PRN Albuterol Hfa (Ventolin Hfa), 2-4 PUFFS INH Q6H PRN for SOB/Wheezing Fluticasone Prop/Salmeterol (Advair Diskus 100/50 60 Dose), 1 PUFF INH BID PRN for Shortness of Breath Lorazepam (Ativan), 0.5 MG PO Q6H PRN for PRN Allergies Coded Allergies: No Known Allergies (Verified , 11/13/17) Physical Exam Vital Signs Date Time Temp Pulse Resp B/P (MAP) Pulse Ox O2 Delivery O2 Flow Rate FiO2 11/21/17 15:47 91 18 111/62 100 Nebulizer 9.0 11/21/17 14:01 36.5 110 24 131/79 95 Room Air Physical Exam GENERAL: Patient is in no acute distress. HEENT: No acute trauma, normocephalic atraumatic, mucous membranes moist, no nasal congestion, no scleral icterus. NECK: No stridor, no adenopathy, no meningismus, trachea is midline. LUNGS: Diminished breath sounds bilaterally. Crackles at the right base. No wheezing. HEART: Without murmurs gallops or rubs, regular rate and rhythm. ABDOMEN: Soft, nontender, bowel sounds positive, no hernias, no peritonitis. EXTREMITIES: No cyanosis or edema, full range of motion of all the joints without pain or difficulty, no signs for acute trauma. There is some left calf tenderness with palpation, no erythema. NEUROLOGIC: Oriented x 3, no acute motor or sensory deficits, no focal weakness. SKIN: No rash, no jaundice, no diaphoresis. Medical Decision & Procedures ER Provider Diagnostic Interpretation: Radiology results as stated below per my review and radiologist interpretation: CHEST 2 VIEWS ROUTINE CLINICAL HISTORY: 77 years-old Female presenting with dyspnea r/o pneumonia (has lung mass). TECHNIQUE: PA and lateral views of the chest were obtained. COMPARISON: CT from 10/18/2017. FINDINGS: Atherosclerosis of the aortic arch. Cardiac silhouette normal in size. Extensive opacity in the right hilum, which may have increased from prior. This is superimposed on the known masslike consolidation in the posterior right lower lobe. Diffuse heterogeneity of lung markings. Prominence of pulmonary vasculature. No large pleural effusion or pneumothorax. Exaggerated thoracic kyphosis with osteopenia suspected. Upper abdomen normal. IMPRESSION: 1. Known right lung and right hilar masses. Greater consolidation in the region of the right hilum. This may represent progression of disease or postobstructive pneumonia. 2. Underlying emphysema. Electronically signed by: Rodolfo Carver M.D. 11/21/2017 4:45 PM Dictated Date/Time: 11/21/2017 4:41 PM L VENOUS DOPP LOWER EXT UNILAT CLINICAL HISTORY: 77 years-old Female presenting with left calf tenderness, dyspnea. TECHNIQUE: Real-time grayscale and color and spectral Doppler ultrasound imaging of the veins of the left lower extremity was performed. Compression and augmentation were also utilized. COMPARISON: None. FINDINGS: Left: Common femoral vein: Patent. Greater saphenous vein: Patent. Deep femoral vein: Patent. Femoral vein: Patent. Popliteal vein: Patent. Calf veins: Patent. Other: None. IMPRESSION: No evidence of deep venous thrombosis. Electronically signed by: Rodolfo Carver M.D. 11/21/2017 4:31 PM Dictated Date/Time: 11/21/2017 4:30 PM Laboratory Results 11/21/17 15:26 Red Blood Count 5.02, Mean Corpuscular Volume 80.9, Mean Corpuscular Hemoglobin 27.1, Mean Corpuscular Hemoglobin Concent 33.5, Mean Platelet Volume 9.3, Neutrophils (%) (Auto) 80.8, Lymphocytes (%) (Auto) 8.9, Monocytes (%) (Auto) 8.3, Eosinophils (%) (Auto) 1.3, Basophils (%) (Auto) 0.5, Neutrophils # (Auto) 6.58, Lymphocytes # (Auto) 0.73, Monocytes # (Auto) 0.68, Eosinophils # (Auto) 0.11, Basophils # (Auto) 0.04 11/21/17 15:26 Test 11/21/17 15:26 11/21/17 15:34 White Blood Count 8.16 K/uL (4.8-10.8) Red Blood Count 5.02 M/uL (4.2-5.4) Hemoglobin 13.6 g/dL (12.0-16.0) Hematocrit 40.6 % (37-47) Mean Corpuscular Volume 80.9 fL (80-100) Mean Corpuscular Hemoglobin 27.1 pg (25-34) Mean Corpuscular Hemoglobin Concent 33.5 g/dl (32-36) Platelet Count 312 K/uL (130-400) Mean Platelet Volume 9.3 fL (7.4-10.4) Neutrophils (%) (Auto) 80.8 % Lymphocytes (%) (Auto) 8.9 % Monocytes (%) (Auto) 8.3 % Eosinophils (%) (Auto) 1.3 % Basophils (%) (Auto) 0.5 % Neutrophils # (Auto) 6.58 K/uL (1.4-6.5) Lymphocytes # (Auto) 0.73 K/uL (1.2-3.4) Monocytes # (Auto) 0.68 K/uL (0.11-0.59) Eosinophils # (Auto) 0.11 K/uL (0-0.5) Basophils # (Auto) 0.04 K/uL (0-0.2) RDW Standard Deviation 39.9 fL (36.4-46.3) RDW Coefficient of Variation 13.3 % (11.5-14.5) Immature Granulocyte % (Auto) 0.2 % Immature Granulocyte # (Auto) 0.02 K/uL (0.00-0.02) Anion Gap 4.0 mmol/L (3-11) Est Creatinine Clear Calc Drug Dose 61.2 ml/min Estimated GFR () 104.1 Estimated GFR (Non- 89.8 BUN/Creatinine Ratio 19.2 (10-20) Calcium Level 8.8 mg/dl (8.5-10.1) Total Bilirubin 0.4 mg/dl (0.2-1) Aspartate Amino Transf (AST/SGOT) 25 U/L (15-37) Alanine Aminotransferase (ALT/SGPT) 41 U/L (12-78) Alkaline Phosphatase 142 U/L (45-117) Troponin I < 0.015 ng/ml (0-0.045) Total Protein 6.5 gm/dl (6.4-8.2) Albumin 2.5 gm/dl (3.4-5.0) Globulin 4.0 gm/dl (2.5-4.0) Albumin/Globulin Ratio 0.6 (0.9-2) Influenza Type A (RT-PCR) Neg for Influ A (NEG) Influenza Type B (RT-PCR) Neg for Influ B (NEG) Laboratory results reviewed by me. Medications Administered Medications (Trade) Dose Ordered Sig/Cecilia Route Start Time Stop Time Status Last Admin Dose Admin Albuterol/ Ipratropium (Duoneb) 3 ml NOW INH 11/21/17 15:00 12/21/17 14:59 11/21/17 15:37 3 ML Methylprednisolone Sodium Succinate 60 mg/Syringe 0.96 ml @ 1.5 mls/min NOW IV 11/21/17 15:00 12/21/17 14:59 11/21/17 15:50 1.5 MLS/MIN Doxycycline Hyclate (Vibramycin Cap) 100 mg ONE ONCE PO 11/21/17 17:30 11/21/17 17:31 DC 11/21/17 17:39 100 MG ECG Per My Interpretation Indication: SOB/dyspnea Rate (beats per minute): 94 Rhythm: sinus rhythm Findings: other (No PVCs No ST elevatoin) ED Course 1504: The patient was evaluated by the medical pathology teacher at this time. 1500: Ordered Methylprednisolone 0.96 mL @ 1.5 mL/min IV, Albuterol 3 mL INH. 1530: The patient was evaluated in room C6. A complete history and physical exam was performed. 1713: Reevaluated the patient. Discussed results and discharge instructions: She verbalized understanding and agreement. The patient is ready for discharge. Medical Decision Differential diagnosis includes; pneumonia, bronchitis, exacerbation of COPD, heart failure, influenza, electrolyte imbalance, anemia. There is no leukocytosis or concerning anemia. No significant electrolyte abnormalities, kidney failure or hepatitis. Influenza testing is negative. EKG shows a sinus rhythm with a PVC, no acute ischemia. Cardiac enzyme testing times one is not consistent with acute cardiac injury. Chest film shows a mass in the right hilum with possible associated pneumonia. The mass is already known. No pneumothorax or heart failure. Lower extremity ultrasound does not show DVT-this was done because of the left calf discomfort on exam. The patient was given IV Solu-Medrol and a DuoNeb. She was given oral doxycycline. She will be discharged on doxycycline, a prednisone taper and frequent albuterol. She needs close follow-up with her doctors office. In short, the patient appears to have pneumonia and a flare of her COPD. Impression Primary Impression: Pneumonia Additional Impression: COPD exacerbation Scribe Attestation The scribe's documentation has been prepared under my direction and personally reviewed by me in its entirety. I confirm that the note above accurately reflects all work, treatment, procedures, and medical decision making performed by me. Departure Information Dispostion Home / Self-Care Prescriptions Prednisone Tab (PREDNISONE) 10 Mg Tab 10 MG PO UD for 10 Days, #30 TAB 50 mg x 2 days, 40 mg x 2 days, 30 mg x 2 days 20 mg x 2 days, 10 mg x 2 days Prov: Anamaria Bourne MD 11/21/17 Doxycycline Monohydrate (Monodox) 100 Mg Cap 100 MG PO BID for 10 Days, #20 CAP Prov: Anamaria Bourne MD 11/21/17 Referrals Alberto Hamilton D.O. (PCP) Forms HOME CARE DOCUMENTATION FORM, IMPORTANT VISIT INFORMATION Patient Instructions My [facility] Additional Instructions You were seen in the ED for shortness of breath. You were found to have possible pneumonia and slight worsening of your COPD Please take your antibiotic as prescribed Please take steroids as pescribed Please use your albuterol inhaler every 4-6 hours for the next 2-3 days. Take your advair as prescribed. Follow up with your PCP and Your research manager within 1 week. If you experience any worsening of symptoms, chest pain, shortness of breath or other concerns, please come back to the ED. Problem Qualifiers
[2017-11-21 15:44] LABS: BASO % 0.5 %; BASO ABS # 0.04 K/uL (0-0.2); EOS % 1.3 %; EOS ABS # 0.11 K/uL (0-0.5); HEMATOCRIT 40.6 % (37-47); HEMOGLOBIN 13.6 g/dL (12.0-16.0); IG# 0.02 K/uL (0.00-0.02); LYMPH % 8.9 %; LYMPH ABS # 0.73 K/uL (1.2-3.4); MEAN CELL VOLUME 80.9 fL (80-100); MEAN CORPUSCULAR HEMOGLOBIN 27.1 pg (25-34); MEAN CORPUSCULAR HGB CONC 33.5 g/dl (32-36); MEAN PLATELET VOLUME 9.3 fL (7.4-10.4); MONO % 8.3 %; MONO ABS # 0.68 K/uL (0.11-0.59); NEUT % 80.8 %; NEUT ABS # 6.58 K/uL (1.4-6.5); PLATELET COUNT 312 K/uL (130-400); RED CELL DISTRIBUTION WIDTH CV 13.3 % (11.5-14.5); RED CELL DISTRIBUTION WIDTH SD 39.9 fL (36.4-46.3); WHITE BLOOD COUNT 8.16 K/uL (4.8-10.8)
[2017-11-21 16:00] LABS: ALBUMIN 2.5 gm/dl (3.4-5.0); ALT/SGPT 41 U/L (12-78); AST/SGOT 25 U/L (15-37); BLOOD UREA NITROGEN 11 mg/dl (7-18); CALCIUM 8.8 mg/dl (8.5-10.1); CARBON DIOXIDE 32 mmol/L (21-32); CREATININE 0.55 mg/dl (0.60-1.20); GLUCOSE 99 mg/dl (70-99); POTASSIUM 3.8 mmol/L (3.5-5.1); SODIUM 135 mmol/L (136-145)
[2017-11-21 16:05] LABS: ALKALINE PHOSPHATASE 142 U/L (45-117); TOTAL PROTEIN 6.5 gm/dl (6.4-8.2)
[2017-11-21 16:27] LABS: INFLUENZA A PCR Neg for Influ A (NEG); INFLUENZA B PCR Neg for Influ B (NEG)
--- NOTE | 2017-11-21 16:32 | DIAGNOSTIC IMAGING REPORT ---
L VENOUS DOPP LOWER EXT UNILAT CLINICAL HISTORY: 77 years-old Female presenting with left calf tenderness, dyspnea. TECHNIQUE: Real-time grayscale and color and spectral Doppler ultrasound imaging of the veins of the left lower extremity was performed. Compression and augmentation were also utilized. COMPARISON: None. FINDINGS: Left: Common femoral vein: Patent. Greater saphenous vein: Patent. Deep femoral vein: Patent. Femoral vein: Patent. Popliteal vein: Patent. Calf veins: Patent. Other: None. IMPRESSION: No evidence of deep venous thrombosis. Electronically signed by: Rodlofo Carver M.D. 11/21/2017 4:31 PM Dictated Date/Time: 11/21/2017 4:30 PM
--- NOTE | 2017-11-21 16:46 | DIAGNOSTIC IMAGING REPORT ---
CHEST 2 VIEWS ROUTINE CLINICAL HISTORY: 77 years-old Female presenting with dyspnea r/o pneumonia (has lung mass). TECHNIQUE: PA and lateral views of the chest were obtained. COMPARISON: CT from 10/18/2017. FINDINGS: Atherosclerosis of the aortic arch. Cardiac silhouette normal in size. Extensive opacity in the right hilum, which may have increased from prior. This is superimposed on the known masslike consolidation in the posterior right lower lobe. Diffuse heterogeneity of lung markings. Prominence of pulmonary vasculature. No large pleural effusion or pneumothorax. Exaggerated thoracic kyphosis with osteopenia suspected. Upper abdomen normal. IMPRESSION: 1. Known right lung and right hilar masses. Greater consolidation in the region of the right hilum. This may represent progression of disease or postobstructive pneumonia. 2. Underlying emphysema. Electronically signed by: Rodolfo Carver M.D. 11/21/2017 4:45 PM Dictated Date/Time: 11/21/2017 4:41 PM
[2017-11-21] MEDS ORDERED: PRED10TA PO (17:23)
[2017-11-21] MEDS ORDERED: DOXY100C76 PO (17:23)
[2017-11-21] MEDS ORDERED: DOXYCYCLINE HYCLATE 100 MG CAP PO ONE (17:30)
[2017-11-21] MEDS ORDERED: DOXYCYCLINE HYCLATE 100 MG CAP PO STA (17:35)
[2017-11-21 17:47] VITALS: BP 111/62; PULSE 91; O2SAT 92
== END 2017-11-21 17:48 | disposition home or self-care (01) ==
LOC: C.EDB 14:01 → C.EDC 17:48
DX: J18.9 Pneumonia, unspecified organism (principal); J44.1 Chronic obstructive pulmonary disease with (acute) exacerbation; F17.200 Nicotine dependence, unspecified, uncomplicated